=== PATIENT | male | born 1930 | race Caucasian/White ===

== ENCOUNTER 2018-05-10 10:30 | Inpatient (IN) | payer MEDICARE, BC ==
[2018-05-10 10:52] LABS: CHLORIDE,CL 103 mEq/L (98-106); SODIUM,NA 139 mEq/L (136-145)
[2018-05-10] MEDS ORDERED: Sodium Chloride 0.9% 10 ML Syringe FLUSH PRN (12:18)
[2018-05-10] MEDS ORDERED: Non-Formulary Medication 1 Each (Albuterol 2 PUFF) INH PRN (12:22)
[2018-05-10] MEDS ORDERED: Albuterol/Ipratropium 3.0-0.5 MG/3 ML Neb Soln NEB PRN (12:22)
[2018-05-10] MEDS ORDERED: Enoxaparin 30 MG/0.3 ML Syringe SUBCUT SCH (12:30)
[2018-05-10] MEDS: methylPREDNISolone Sodium Succinate 125 MG/2 ML SDV IVPUSH SCH (13:21)
[2018-05-10] MEDS: ALBUTEROL NEB SCH ×3 (13:22→20:21)
[2018-05-10] MEDS: IPRATROPIUM NEB SCH ×3 (13:22→20:21)
[2018-05-10] MEDS: Oseltamivir 75 MG Cap PO SCH ×2 (13:23→20:24)
[2018-05-10] MEDS: Acetaminophen 325 MG Tab PO PRN (13:28)
[2018-05-10] MEDS: WARFARIN 4 MG PO SCH (13:49)
[2018-05-10] MEDS: Budesonide 0.5 MG/2 ML Neb Susp INH SCH (20:20)
[2018-05-11] MEDS: ALBUTEROL NEB SCH ×4 (07:54→19:50)
[2018-05-11] MEDS: IPRATROPIUM NEB SCH ×4 (07:54→19:50)
[2018-05-11] MEDS: Furosemide 40 MG Tab PO SCH (07:55)
[2018-05-11] MEDS: Budesonide 0.5 MG/2 ML Neb Susp INH SCH ×2 (07:56→19:53)
[2018-05-11] MEDS: Lisinopril 5 MG Tab PO SCH (07:57)
[2018-05-11] MEDS: Oseltamivir 75 MG Cap PO SCH ×2 (07:58→19:53)
[2018-05-11] MEDS: Acetaminophen 325 MG Tab PO PRN (08:22)
[2018-05-11] MEDS: Codeine/Promethazine 10-6.25 MG/5 ML Syrup 5 ML UD Cup PO PRN ×2 (10:09→23:53)
--- NOTE | 2018-05-11 11:26 | PCM.PN ---
- General Info Date of Service: 05/11/18 Admission Dx/Problem (Free Text): Influenza A Functional Status: Reports: Pain Controlled, Tolerating Diet, Ambulating - Review of Systems General: Reports: Fever, Weakness, Fatigue, Malaise HEENT: Reports: Sinus Congestion, Rhinitis Pulmonary: Reports: Shortness of Breath, Cough, Wheezing Cardiovascular: Denies: Chest Pain, Edema, Lightheadedness Gastrointestinal: Reports: Other (patient states is sore in his abdomen and chest from coughing so frequently). Denies: Abdominal Pain, Nausea, Vomiting Genitourinary: Reports: No Symptoms Musculoskeletal: Reports: No Symptoms Skin: Reports: No Symptoms Neurological: Reports: No Symptoms - Patient Data Vitals - Most Recent: Last Vital Signs Temp 99.5 F 05/11/18 07:23 Pulse 85 05/11/18 07:23 Resp 20 05/11/18 07:23 BP 97/54 L 05/11/18 07:23 Pulse Ox 93 L 05/11/18 07:23 Weight - Most Recent: 163 lb 8 oz Lab Results Last 24 Hours: Laboratory Results - last 24 hr 05/10/18 05/10/18 05/11/18 Range/Units 17:28 20:40 07:00 PT 22.5 H (9.7-12.3) SEC INR 2.30 H (0.92-1.18) POC Glucose 289 H 373 H (75-105) mg/dl C-Reactive Protein (0.2-0.8) mg/dL 05/11/18 05/11/18 05/11/18 Range/Units 07:00 07:21 11:08 PT (9.7-12.3) SEC INR (0.92-1.18) POC Glucose 196 H 227 H (75-105) mg/dl C-Reactive Protein 8.1 H (0.2-0.8) mg/dL [place] Results Last 24 Hours: Microbiology 05/10/18 10:38 Influenza Type A Antigen Screen - Final Nasopharyngeal Swab Positive Influenza A Ag Influenza Type B Antigen Screen - Final NEGATIVE INFLUENZA B VIRUS AG Med Orders - Current: Current Medications Acetaminophen (Tylenol) 650 mg PO Q4H PRN PRN Reason: Pain (Mild 1-3)/fever Last Admin: 05/11/18 08:22 Dose: 650 mg Albuterol/Ipratropium (Duoneb 3.0-0.5 Mg/3 Ml) 3 ml NEB QID [facility] Last Admin: 05/11/18 07:54 Dose: 3 ml Albuterol/Ipratropium (Duoneb 3.0-0.5 Mg/3 Ml) 3 ml NEB QID PRN PRN Reason: Shortness of Breath Budesonide (Pulmicort) 0.5 mg INH BID [facility] Last Admin: 05/11/18 07:56 Dose: 0.5 mg Furosemide (Lasix) 40 mg PO DAILY [facility] Last Admin: 05/11/18 07:55 Dose: 40 mg Ibuprofen (Motrin 100 Mg/5 Ml Susp) 600 mg PO Q6H PRN PRN Reason: Fever Insulin Aspart (Novolog) 0 unit SUBCUT WITHMEALSANDBED [facility]; Protocol Last Admin: 05/11/18 07:54 Dose: 2 unit Lisinopril (Prinivil) 5 mg PO DAILY [facility] Last Admin: 05/11/18 07:57 Dose: Not Given Methylprednisolone Sodium Succinate (Solu-Medrol) 62.5 mg IVPUSH 1200 [facility] Last Admin: 05/10/18 13:21 Dose: 62.5 mg Ptom Warfarin 4 (Mg Tab) 2 mg PO SUTUTHSA [facility] Last Admin: 05/10/18 13:49 Dose: 2 mg Ptom Warfarin 4 (Mg Tab) 4 mg PO MOWEFR [facility] Oseltamivir Phosphate (Tamiflu) 75 mg PO BID [facility] Stop: 05/14/18 20:01 Last Admin: 05/11/18 07:58 Dose: 75 mg Promethazine HCl/Codeine (Phenergan With Codeine) 5 - 10 ml PO Q6H PRN PRN Reason: Cough Last Admin: 05/11/18 10:09 Dose: 10 ml Sodium Chloride (Saline Flush) 10 ml FLUSH ASDIRECTED PRN PRN Reason: Keep Vein Open Discontinued Medications Enoxaparin Sodium (Lovenox) 30 mg SUBCUT Q24H [facility] Last Admin: 05/10/18 13:44 Dose: Not Given Non-Formulary Medication (Albuterol) 2 puff INH Q4H PRN PRN Reason: Shortness of Breath - Exam General: Alert, Oriented HEENT: Mucous Membr. Moist/[place] Neck: Supple Lungs: Decreased Breath Sounds, Wheezing Cardiovascular: Regular Rate, Regular Rhythm GI/Abdominal Exam: Normal Bowel Sounds, Soft, Non-Tender Extremities: Normal Inspection, No Pedal Edema Skin: Warm, Dry Neurological: No New Focal Deficit - Problem List & Annotations (1) Influenza A SNOMED Code(s): 169670982 Code(s): J10.1 - FLU DUE TO OTH IDENT INFLUENZA VIRUS W OTH RESP MANIFEST Status: Acute Priority: High Current Visit: Yes - Problem List Review Problem List Initiated/Reviewed/Updated: Yes - My Orders Last 24 Hours: My Active Orders 05/11/18 09:12 Codeine/Promethazine [Phenergan with Codeine] 5 - 10 ml PO Q6H PRN 05/11/18 11:14 Ibuprofen [Motrin 100 MG/5 ML Susp] 600 mg PO Q6H PRN - Assessment Assessment:: Influenza A - Plan Plan:: Patient continues to "not feel well". States abdomen and chest are sore from coughing so much. Does get short of breath with activity. Wheezing at times. Cough nonproductive. He has continued to run a fever, been getting tylenol for this. Feels weak. Oxygen sats are maintained over 90% on room air. WBC stable at 6.1 on admission, CRP increased to 8.1 from 2.6. Will continue with nebulizer treatments, Tamiflu. Add prometh with codeine for cough. Add ibuprofen for fever control. Continue to follow.
[2018-05-11] MEDS: Ibuprofen 200 MG Tab PO PRN (11:42)
[2018-05-11] MEDS: WARFARIN 4 MG PO SCH (11:43)
[2018-05-11] MEDS: methylPREDNISolone Sodium Succinate 125 MG/2 ML SDV IVPUSH SCH (11:54)
[2018-05-11] MEDS ORDERED: Insulin Aspart 100 Units/ML 3 ML Pen SUBCUT ONE (21:08)
[2018-05-12] MEDS: Budesonide 0.5 MG/2 ML Neb Susp INH SCH ×2 (07:28→20:04)
[2018-05-12] MEDS: Furosemide 40 MG Tab PO SCH (07:30)
[2018-05-12] MEDS: Lisinopril 5 MG Tab PO SCH (07:30)
[2018-05-12] MEDS: ALBUTEROL NEB SCH ×4 (07:31→20:04)
[2018-05-12] MEDS: IPRATROPIUM NEB SCH ×4 (07:31→20:04)
[2018-05-12] MEDS: Acetaminophen 325 MG Tab PO PRN ×2 (07:36→23:18)
[2018-05-12 07:37] LABS: CHLORIDE,CL 100 mEq/L (98-106); SODIUM,NA 134 mEq/L (136-145)
[2018-05-12] MEDS: Oseltamivir 75 MG Cap PO SCH ×2 (07:37→20:04)
[2018-05-12] MEDS: Codeine/Promethazine 10-6.25 MG/5 ML Syrup 5 ML UD Cup PO PRN (12:06)
[2018-05-12] MEDS: WARFARIN 4 MG PO SCH (12:57)
[2018-05-12] MEDS: methylPREDNISolone Sodium Succinate 125 MG/2 ML SDV IVPUSH SCH (13:04)
[2018-05-12] MEDS: Ibuprofen 200 MG Tab PO PRN (20:48)
--- NOTE | 2018-05-12 20:49 | PCM.PN ---
- General Info Date of Service: 05/12/18 Admission Dx/Problem (Free Text): Influenza A Functional Status: Reports: Pain Controlled, Tolerating Diet, Ambulating - Review of Systems General: Reports: Fever, Weakness, Fatigue, Malaise HEENT: Reports: Sinus Congestion, Rhinitis. Denies: Ear Pain, Sore Throat Pulmonary: Reports: Shortness of Breath, Cough. Denies: Sputum Cardiovascular: Denies: Chest Pain, Edema, Lightheadedness Gastrointestinal: Denies: Abdominal Pain, Nausea, Vomiting Genitourinary: Reports: No Symptoms Musculoskeletal: Reports: Back Pain (chronic in nature) Skin: Reports: No Symptoms Neurological: Reports: Weakness - Patient Data Vitals - Most Recent: Last Vital Signs Temp 100.1 F 05/12/18 20:00 Pulse 120 H 05/12/18 20:00 Resp 20 05/12/18 20:00 BP 133/74 05/12/18 20:00 Pulse Ox 91 L 05/12/18 20:00 Weight - Most Recent: 163 lb 8 oz Lab Results Last 24 Hours: Laboratory Results - last 24 hr 05/11/18 05/12/18 05/12/18 Range/Units 23:41 07:00 07:00 WBC 4.4 L (5.0-10.0) 10^3/uL RBC 4.12 L (4.50-6.00) 10^6/uL Hgb 12.8 L (14.0-18.0) g/dL Hct 38.2 L (40.0-54.0) % MCV 92.7 (82.0-94.0) fL MCH 31.1 (27.0-32.0) pg MCHC 33.5 (33.0-38.0) g/dL RDW Coeff of Jose 12.7 (11.0-15.0) % Plt Count 126 L (150-400) 10^3/uL Add Manual Diff Yes Neutrophils % (Manual) 27 L (35-85) % Band Neutrophils % 58 H (0-5) % Lymphocytes % (Manual) 12 L (21-55) % Monocytes % (Manual) 3 (2-12) % Absolute Neutrophils 3.74 (1.80-7.00) 10^3/uL Lymphocytes # (Manual) 0.53 L (1.00-4.80) 10^3/uL Monocytes # (Manual) 0.13 (0.00-0.80) 10^3/uL PT 25.8 H (9.7-12.3) SEC INR 2.67 H (0.92-1.18) Sodium (136-145) mEq/L Potassium (3.5-5.0) mEq/L Chloride (98-106) mEq/L Carbon Dioxide (21-32) mmol/L BUN (7-18) mg/dL Creatinine (0.7-1.3) mg/dL Est Cr Clr Drug Dosing mL/min Estimated GFR (MDRD) (>=60) mL/min Glucose (75-99) mg/dL POC Glucose 439 H* (75-105) mg/dl Calcium (8.4-10.1) mg/dL C-Reactive Protein (0.2-0.8) mg/dL 05/12/18 05/12/18 05/12/18 Range/Units 07:00 11:33 16:58 WBC (5.0-10.0) 10^3/uL RBC (4.50-6.00) 10^6/uL Hgb (14.0-18.0) g/dL Hct (40.0-54.0) % MCV (82.0-94.0) fL MCH (27.0-32.0) pg MCHC (33.0-38.0) g/dL RDW Coeff of Jose (11.0-15.0) % Plt Count (150-400) 10^3/uL Add Manual Diff Neutrophils % (Manual) (35-85) % Band Neutrophils % (0-5) % Lymphocytes % (Manual) (21-55) % Monocytes % (Manual) (2-12) % Absolute Neutrophils (1.80-7.00) 10^3/uL Lymphocytes # (Manual) (1.00-4.80) 10^3/uL Monocytes # (Manual) (0.00-0.80) 10^3/uL PT (9.7-12.3) SEC INR (0.92-1.18) Sodium 134 L (136-145) mEq/L Potassium 4.7 (3.5-5.0) mEq/L Chloride 100 (98-106) mEq/L Carbon Dioxide 25 (21-32) mmol/L BUN 23 H (7-18) mg/dL Creatinine 1.0 (0.7-1.3) mg/dL Est Cr Clr Drug Dosing 46.08 mL/min Estimated GFR (MDRD) > 60 (>=60) mL/min Glucose 197 H (75-99) mg/dL POC Glucose 284 H 222 H (75-105) mg/dl Calcium 8.4 (8.4-10.1) mg/dL C-Reactive Protein 18.8 H (0.2-0.8) mg/dL Med Orders - Current: Current Medications Acetaminophen (Tylenol) 650 mg PO Q4H PRN PRN Reason: Pain (Mild 1-3)/fever Last Admin: 05/12/18 07:36 Dose: 650 mg Albuterol/Ipratropium (Duoneb 3.0-0.5 Mg/3 Ml) 3 ml NEB QID [facility] Last Admin: 05/12/18 20:04 Dose: 3 ml Albuterol/Ipratropium (Duoneb 3.0-0.5 Mg/3 Ml) 3 ml NEB QID PRN PRN Reason: Shortness of Breath Budesonide (Pulmicort) 0.5 mg INH BID [facility] Last Admin: 05/12/18 20:04 Dose: 0.5 mg Furosemide (Lasix) 40 mg PO DAILY [facility] Last Admin: 05/12/18 07:30 Dose: 40 mg Ibuprofen (Motrin) 600 mg PO Q6H PRN PRN Reason: Fever Last Admin: 05/11/18 11:42 Dose: 600 mg Insulin Aspart (Novolog) 0 unit SUBCUT WITHMEALSANDBED [facility]; Protocol Last Admin: 05/12/18 17:10 Dose: 4 unit Lisinopril (Prinivil) 5 mg PO DAILY [facility] Last Admin: 05/12/18 07:30 Dose: 5 mg Methylprednisolone Sodium Succinate (Solu-Medrol) 62.5 mg IVPUSH 1200 [facility] Last Admin: 05/12/18 13:04 Dose: 62.5 mg Ptom Warfarin 4 (Mg Tab) 2 mg PO SUTUTHSA [facility] Last Admin: 05/12/18 12:57 Dose: 2 mg Ptom Warfarin 4 (Mg Tab) 4 mg PO MOWEFR [facility] Last Admin: 05/11/18 11:43 Dose: 4 mg Oseltamivir Phosphate (Tamiflu) 75 mg PO BID [facility] Stop: 05/14/18 20:01 Last Admin: 05/12/18 20:04 Dose: 75 mg Promethazine HCl/Codeine (Phenergan With Codeine) 5 - 10 ml PO Q6H PRN PRN Reason: Cough Last Admin: 05/12/18 12:06 Dose: 5 ml Sodium Chloride (Saline Flush) 10 ml FLUSH ASDIRECTED PRN PRN Reason: Keep Vein Open Discontinued Medications Enoxaparin Sodium (Lovenox) 30 mg SUBCUT Q24H [facility] Last Admin: 05/10/18 13:44 Dose: Not Given Insulin Aspart (Novolog) 15 unit SUBCUT ONETIME ONE Stop: 05/11/18 21:09 Last Admin: 05/11/18 21:35 Dose: 15 units Non-Formulary Medication (Albuterol) 2 puff INH Q4H PRN PRN Reason: Shortness of Breath - Exam General: Alert, Oriented HEENT: Mucous Membr. Moist/[place] Neck: Supple Lungs: Decreased Breath Sounds, Rhonchi Cardiovascular: Regular Rate, Regular Rhythm GI/Abdominal Exam: Normal Bowel Sounds, Soft, Non-Tender Extremities: Normal Inspection, No Pedal Edema Skin: Warm, Dry Neurological: No New Focal Deficit - Problem List & Annotations (1) Influenza A SNOMED Code(s): 809059825 Code(s): J10.1 - FLU DUE TO OTH IDENT INFLUENZA VIRUS W OTH RESP MANIFEST Status: Acute Priority: High Current Visit: Yes - Problem List Review Problem List Initiated/Reviewed/Updated: Yes - Assessment Assessment:: Influenza A - Plan Plan:: Patient continues to "not feel well". States abdomen and chest are sore from coughing so much. Does get short of breath with activity. Wheezing at times. Cough nonproductive. He has continued to run a fever, been getting tylenol for this. Feels weak. Oxygen sats are maintained over 90% on room air. WBC stable at 6.1 on admission, CRP increased to 8.1 from 2.6. Will continue with nebulizer treatments, Tamiflu. Add prometh with codeine for cough. Add ibuprofen for fever control. Continue to follow. 05-12-2018 Patient admits to feeling slightly better than yesterday. Does continue to cough frequently when he lays down, states better when he is up in the chair. Cough has been nonproductive. Continues to have intermittent fevers. Lung sounds note rhonchi. Saturations do drop to low 90s at times with activity and cough. WBC down to 4.4 today. CRP increased to 18.8. Will continue with Tamiflu. Nebs and steroids. Possible discharge in the next day or 2.
[2018-05-13] MEDS: ALBUTEROL NEB SCH ×4 (07:48→20:55)
[2018-05-13] MEDS: Budesonide 0.5 MG/2 ML Neb Susp INH SCH ×2 (07:48→20:55)
[2018-05-13] MEDS: IPRATROPIUM NEB SCH ×4 (07:48→20:55)
[2018-05-13] MEDS: Oseltamivir 75 MG Cap PO SCH ×2 (07:49→20:55)
[2018-05-13] MEDS: Furosemide 40 MG Tab PO SCH (07:49)
[2018-05-13] MEDS: Lisinopril 5 MG Tab PO SCH (07:49)
[2018-05-13] MEDS: methylPREDNISolone Sodium Succinate 125 MG/2 ML SDV IVPUSH SCH (12:14)
[2018-05-13] MEDS: WARFARIN 4 MG PO SCH (12:15)
[2018-05-13] MEDS: Albuterol/Ipratropium 3.0-0.5 MG/3 ML Neb Soln NEB PRN ×5 (13:29→14:10)
[2018-05-13 13:49] LABS: BICARBONATE,ARTERIAL 21.2 mm/L (22.0-26.0); O2 DELIVERY DEVICE AEROSOL MASK; O2 SATURATION ARTERIAL 97 % (95-98); PCO2 ARTERIAL 45 mm/Hg0 (35-45); PO2 ARTERIAL 103 mm/Hg (80-100)
[2018-05-13] MEDS: Levalbuterol HCl 1.25 MG/3 ML Neb INH SCH ×4 (14:38→15:55)
[2018-05-13] MEDS ORDERED: LORazepam 2 MG/ML Syringe IVPUSH ONE (15:05)
[2018-05-13] MEDS ORDERED: LORazepam 2 MG/ML Syringe IVPUSH PRN (16:14)
[2018-05-13] MEDS ORDERED: fentaNYL 100 MCG/2 ML SDV IVPUSH PRN (16:16)
--- NOTE | 2018-05-13 20:48 | PCM.PN ---
- General Info Date of Service: 05/13/18 Admission Dx/Problem (Free Text): Influenza A Functional Status: Reports: Pain Controlled, Tolerating Diet, Ambulating - Review of Systems General: Reports: Weakness, Fatigue, Malaise HEENT: Reports: Rhinitis Pulmonary: Reports: Shortness of Breath, Cough, Wheezing Cardiovascular: Denies: Chest Pain, Edema, Lightheadedness Gastrointestinal: Denies: Abdominal Pain, Nausea, Vomiting Genitourinary: Reports: No Symptoms Musculoskeletal: Reports: Back Pain Skin: Reports: No Symptoms Neurological: Reports: Weakness - Patient Data Vitals - Most Recent: Last Vital Signs Temp 99 F 05/13/18 17:00 Pulse 125 H 05/13/18 17:00 Resp 30 H 05/13/18 17:00 BP 118/58 L 05/13/18 17:00 Pulse Ox 96 05/13/18 17:00 Weight - Most Recent: 163 lb 8 oz Lab Results Last 24 Hours: Laboratory Results - last 24 hr 05/12/18 05/13/18 05/13/18 Range/Units 20:34 07:18 07:43 WBC 3.5 L (5.0-10.0) 10^3/uL RBC 4.35 L (4.50-6.00) 10^6/uL Hgb 13.4 L (14.0-18.0) g/dL Hct 40.5 (40.0-54.0) % MCV 93.1 (82.0-94.0) fL MCH 30.8 (27.0-32.0) pg MCHC 33.1 (33.0-38.0) g/dL RDW Coeff of Jose 12.6 (11.0-15.0) % Plt Count 107 L (150-400) 10^3/uL Add Manual Diff Yes Neutrophils % (Manual) 36 (35-85) % Band Neutrophils % 45 H (0-5) % Lymphocytes % (Manual) 16 L (21-55) % Monocytes % (Manual) 1 L (2-12) % Metamyelocytes % 2 % Absolute Neutrophils 2.84 (1.80-7.00) 10^3/uL Lymphocytes # (Manual) 0.56 L (1.00-4.80) 10^3/uL Monocytes # (Manual) 0.04 (0.00-0.80) 10^3/uL Vacuolated Monocytes Occasional (NOT SEEN) Platelet Estimate Decreased L (ADEQUATE) ABG pH (7.35-7.45) ABG pCO2 (35-45) mm/Hg0 ABG pO2 (80-100) mm/Hg ABG HCO3 (22.0-26.0) mm/L ABG O2 Saturation (95-98) % ABG Base Excess (-2.0-3.0) O2 Delivery Device Sodium (136-145) mEq/L Potassium (3.5-5.0) mEq/L Chloride (98-106) mEq/L Carbon Dioxide (21-32) mmol/L BUN (7-18) mg/dL Creatinine (0.7-1.3) mg/dL Est Cr Clr Drug Dosing mL/min Estimated GFR (MDRD) (>=60) mL/min Glucose (75-99) mg/dL POC Glucose 316 H 258 H (75-105) mg/dl Calcium (8.4-10.1) mg/dL C-Reactive Protein (0.2-0.8) mg/dL 05/13/18 05/13/18 05/13/18 Range/Units 07:43 11:48 13:23 WBC (5.0-10.0) 10^3/uL RBC (4.50-6.00) 10^6/uL Hgb (14.0-18.0) g/dL Hct (40.0-54.0) % MCV (82.0-94.0) fL MCH (27.0-32.0) pg MCHC (33.0-38.0) g/dL RDW Coeff of Jose (11.0-15.0) % Plt Count (150-400) 10^3/uL Add Manual Diff Neutrophils % (Manual) (35-85) % Band Neutrophils % (0-5) % Lymphocytes % (Manual) (21-55) % Monocytes % (Manual) (2-12) % Metamyelocytes % % Absolute Neutrophils (1.80-7.00) 10^3/uL Lymphocytes # (Manual) (1.00-4.80) 10^3/uL Monocytes # (Manual) (0.00-0.80) 10^3/uL Vacuolated Monocytes (NOT SEEN) Platelet Estimate (ADEQUATE) ABG pH 7.28 L (7.35-7.45) ABG pCO2 45 (35-45) mm/Hg0 ABG pO2 103 H (80-100) mm/Hg ABG HCO3 21.2 L (22.0-26.0) mm/L ABG O2 Saturation 97 (95-98) % ABG Base Excess -6.0 L (-2.0-3.0) O2 Delivery Device Aerosol mask Sodium 132 L (136-145) mEq/L Potassium 5.3 H (3.5-5.0) mEq/L Chloride 99 (98-106) mEq/L Carbon Dioxide 24 (21-32) mmol/L BUN 31 H (7-18) mg/dL Creatinine 1.5 H (0.7-1.3) mg/dL Est Cr Clr Drug Dosing 30.72 mL/min Estimated GFR (MDRD) 44 L (>=60) mL/min Glucose 251 H D (75-99) mg/dL POC Glucose 268 H (75-105) mg/dl Calcium 9.4 (8.4-10.1) mg/dL C-Reactive Protein 37.0 H (0.2-0.8) mg/dL 05/13/18 05/13/18 Range/Units 17:29 20:03 WBC (5.0-10.0) 10^3/uL RBC (4.50-6.00) 10^6/uL Hgb (14.0-18.0) g/dL Hct (40.0-54.0) % MCV (82.0-94.0) fL MCH (27.0-32.0) pg MCHC (33.0-38.0) g/dL RDW Coeff of Jose (11.0-15.0) % Plt Count (150-400) 10^3/uL Add Manual Diff Neutrophils % (Manual) (35-85) % Band Neutrophils % (0-5) % Lymphocytes % (Manual) (21-55) % Monocytes % (Manual) (2-12) % Metamyelocytes % % Absolute Neutrophils (1.80-7.00) 10^3/uL Lymphocytes # (Manual) (1.00-4.80) 10^3/uL Monocytes # (Manual) (0.00-0.80) 10^3/uL Vacuolated Monocytes (NOT SEEN) Platelet Estimate (ADEQUATE) ABG pH (7.35-7.45) ABG pCO2 (35-45) mm/Hg0 ABG pO2 (80-100) mm/Hg ABG HCO3 (22.0-26.0) mm/L ABG O2 Saturation (95-98) % ABG Base Excess (-2.0-3.0) O2 Delivery Device Sodium (136-145) mEq/L Potassium (3.5-5.0) mEq/L Chloride (98-106) mEq/L Carbon Dioxide (21-32) mmol/L BUN (7-18) mg/dL Creatinine (0.7-1.3) mg/dL Est Cr Clr Drug Dosing mL/min Estimated GFR (MDRD) (>=60) mL/min Glucose (75-99) mg/dL POC Glucose 284 H 300 H (75-105) mg/dl Calcium (8.4-10.1) mg/dL C-Reactive Protein (0.2-0.8) mg/dL Med Orders - Current: Current Medications Acetaminophen (Tylenol) 650 mg PO Q4H PRN PRN Reason: Pain (Mild 1-3)/fever Last Admin: 05/12/18 23:18 Dose: 650 mg Albuterol/Ipratropium (Duoneb 3.0-0.5 Mg/3 Ml) 3 ml NEB QID [facility] Last Admin: 05/13/18 16:07 Dose: Not Given Albuterol/Ipratropium (Duoneb 3.0-0.5 Mg/3 Ml) 3 ml NEB QID PRN PRN Reason: Shortness of Breath Budesonide (Pulmicort) 0.5 mg INH BID [facility] Last Admin: 05/13/18 07:48 Dose: 0.5 mg Fentanyl (Sublimaze) 25 mcg IVPUSH Q2H PRN PRN Reason: Pain Furosemide (Lasix) 40 mg PO DAILY [facility] Last Admin: 05/13/18 07:49 Dose: 40 mg Ibuprofen (Motrin) 600 mg PO Q6H PRN PRN Reason: Fever Last Admin: 05/12/18 20:48 Dose: 600 mg Insulin Aspart (Novolog) 0 unit SUBCUT WITHMEALSANDBED [facility]; Protocol Last Admin: 05/13/18 17:40 Dose: Not Given Levalbuterol HCl (Xopenex) 1.25 mg INH .CONTINUOUS [facility] Last Admin: 05/13/18 15:55 Dose: 1.25 mg Lisinopril (Prinivil) 5 mg PO DAILY [facility] Last Admin: 05/13/18 07:49 Dose: Not Given Lorazepam (Ativan) 1 mg IVPUSH Q6H PRN PRN Reason: Anxiety Methylprednisolone Sodium Succinate (Solu-Medrol) 62.5 mg IVPUSH 1200 [facility] Last Admin: 05/13/18 12:14 Dose: 62.5 mg Oseltamivir Phosphate (Tamiflu) 75 mg PO BID [facility] Stop: 05/14/18 20:01 Last Admin: 05/13/18 07:49 Dose: 75 mg Promethazine HCl/Codeine (Phenergan With Codeine) 5 - 10 ml PO Q6H PRN PRN Reason: Cough Last Admin: 05/12/18 12:06 Dose: 5 ml Sodium Chloride (Saline Flush) 10 ml FLUSH ASDIRECTED PRN PRN Reason: Keep Vein Open Warfarin Sodium (Coumadin) 2 mg PO [facility] Warfarin Sodium (Coumadin) 4 mg PO [id number] [facility] Discontinued Medications Albuterol/Ipratropium (Duoneb 3.0-0.5 Mg/3 Ml) 3 ml NEB CONTINUOUS PRN PRN Reason: Dyspnea Last Admin: 05/13/18 14:10 Dose: 3 ml Enoxaparin Sodium (Lovenox) 30 mg SUBCUT Q24H [facility] Last Admin: 05/10/18 13:44 Dose: Not Given Insulin Aspart (Novolog) 15 unit SUBCUT ONETIME ONE Stop: 05/11/18 21:09 Last Admin: 05/11/18 21:35 Dose: 15 units Lorazepam (Ativan) 0.5 mg IVPUSH ONETIME ONE Stop: 05/13/18 15:06 Last Admin: 05/13/18 15:16 Dose: 0.5 mg Non-Formulary Medication (Albuterol) 2 puff INH Q4H PRN PRN Reason: Shortness of Breath Ptom War[facility]in 4 (Mg Tab) [facility] Last Admin: 05/12/18 12:57 Dose: 2 mg Ptom Warfarin 4 (Mg Tab) 4 mg PO MOWEFR [facility] Last Admin: 05/13/18 12:15 Dose: 4 mg Warfarin Sodium (Coumadin) 4 mg PO MOWEFR [facility] - Exam Quality Assessment: Supplemental Oxygen General: Alert, Oriented HEENT: Mucous Membr. Moist/[place] Neck: Supple Lungs: Rhonchi, Wheezing Cardiovascular: Regular Rate, Regular Rhythm, Tachycardia GI/Abdominal Exam: Normal Bowel Sounds, Soft, Non-Tender Extremities: Normal Inspection, No Pedal Edema Skin: Warm, Dry Neurological: No New Focal Deficit - Problem List & Annotations (1) Influenza A SNOMED Code(s): 517839318 Code(s): J10.1 - FLU DUE TO OTH IDENT INFLUENZA VIRUS W OTH RESP MANIFEST Status: Acute Priority: High Current Visit: Yes (2) Palliative care patient SNOMED Code(s): 683878006 Code(s): Z51.5 - ENCOUNTER FOR PALLIATIVE CARE Status: Acute Priority: High Current Visit: Yes - Problem List Review Problem List Initiated/Reviewed/Updated: Yes - My Orders Last 24 Hours: My Active Orders 05/13/18 16:14 LORazepam [Ativan] 1 mg IVPUSH Q6H PRN 05/13/18 16:16 fentaNYL [Sublimaze] 25 mcg IVPUSH Q2H PRN - Assessment Assessment:: Influenza A Palliative Care Patient - Plan Plan:: Patient continues to "not feel well". States abdomen and chest are sore from coughing so much. Does get short of breath with activity. Wheezing at times. Cough nonproductive. He has continued to run a fever, been getting tylenol for this. Feels weak. Oxygen sats are maintained over 90% on room air. WBC stable at 6.1 on admission, CRP increased to 8.1 from 2.6. Will continue with nebulizer treatments, Tamiflu. Add prometh with codeine for cough. Add ibuprofen for fever control. Continue to follow. 05-12-2018 Patient admits to feeling slightly better than yesterday. Does continue to cough frequently when he lays down, states better when he is up in the chair. Cough has been nonproductive. Continues to have intermittent fevers. Lung sounds note rhonchi. Saturations do drop to low 90s at times with activity and cough. WBC down to 4.4 today. CRP increased to 18.8. Will continue with Tamiflu. Nebs and steroids. Possible discharge in the next day or 2. 05-13-2018 Patient notably more short of breath this am, now on oxygen. Sats did drop in to the upper 80s on room air so oxygen was initiated at 2 liters. He admits to ongoing cough, still nonproductive. Is wheezing with scattered rhonchi this am. Feels weak. WBC remains low at 3.5. CRP has increased to 37. Creatinine 1.5. Sodium 132, potassium 5.3. Will continue with Tamiflu, nebs and steroids. Switched to acute care last evening due to change in status. Inappropriate for discharge.
--- NOTE | 2018-05-13 22:16 | PCM.SN ---
- Free Text/Narrative Note: Called to room to see patient due to change in status. Dr. Maurer also alerted and in to see patient. Patient has had increased work of breathing, more short of breath. Requiring 10 liters of oxygen to keep his sats greater than 90%. Dr. Maurer had ordered 0.5 mg of Ativan and continues Xopenex nebulizer treatments. Did seem to help his ease of breathing. Family in at bedside and aware of status of patient and increased oxygen demands. . Patient does have a living will, had signed a Code Level 2. Is aware of that infectious process is detrimental to his lungs and patient could decline to the point of . Patient does not want intubation. Family does not want patient transferred. Palliative care status. Continue with Ativan, Fentanyl, Nebs and Tamiflu and monitor closely.
[2018-05-14] MEDS: Ibuprofen 200 MG Tab PO PRN (03:33)
[2018-05-14] MEDS: Furosemide 40 MG Tab PO SCH ×2 (07:53→08:35)
[2018-05-14] MEDS: ALBUTEROL NEB SCH ×4 (07:53→20:47)
[2018-05-14] MEDS: IPRATROPIUM NEB SCH ×4 (07:53→20:47)
[2018-05-14] MEDS: Oseltamivir 75 MG Cap PO SCH ×2 (07:53→08:35)
[2018-05-14] MEDS: Budesonide 0.5 MG/2 ML Neb Susp INH SCH ×2 (07:54→20:47)
[2018-05-14] MEDS: Lisinopril 5 MG Tab PO SCH (07:54)
[2018-05-14 12:08] VITALS: BP 104/54
[2018-05-14] MEDS: methylPREDNISolone Sodium Succinate 125 MG/2 ML SDV IVPUSH SCH (12:10)
[2018-05-14] MEDS ORDERED: Atropine 1% Ophth Soln 5 ML BOTTLE SL PRN ×2 (13:04→13:45)
[2018-05-14] MEDS ORDERED: LORazepam 2 MG/ML Syringe IVPUSH PRN (13:04)
--- NOTE | 2018-05-14 13:08 | PCM.PN ---
- General Info Date of Service: 05/14/18 Admission Dx/Problem (Free Text): Influenza A Subjective Update: Cuate is an 88 year old male who was admitted to the hospital 05/10/2018 with Influenza A. He has progressively declined since time of admission. Breathing has become much more labored, lung sounds have worsened, and his O2 needs have increased greatly. Intubation and transfer to higher level of care were discussed at length with family and patient yesterday, to which they declined. Throughout the night, patient continues to have very labored breathing and his oxygen needs have increased. He is currently maintaining O2 sat of 91% on 10 L O2 via NRB. He remains very tachycardic with pulse ranging 120's-140's. BP is stable 100's/50-60's. He has been afebrile the past 24 hours. He does however, deny any pain or discomfort. Blood work continues to reveal decline. WBC dropped from 6.1 on admit to critically low today at 1.6. CRP has increased significantly, from 2.6 on admit to 37 today. Sodium continues to decrease from 139 on admit to 132 today. Creatinine also declining from 1.0 on admit to 1.5 today. Blood sugars have been 200-300's with SSI. This morning patient refused blood sugar check. He reports "that's enough." Family and patient wish to switch to comfort measures. I did discuss with patient and family repeat CXR today to rule out aspiration pneumonia, to which they all declined. Patient much more lethargic today. He attempts to pull oxygen mask off at times. Patient reports he is ready to let go. Patient did have dose of lorazepam this this morning and appears to be much more comfortable. Family wish to continue this medication to allow him to rest peacefully. I discussed with family, stopping all blood draws and oral medications, to which they prefer. Did discuss that if patient wishes he can eat /drink, but there is high risk of aspiration in his current condition to which they understand. Functional Status: Reports: Pain Controlled, Urinating, New Symptoms (worsening breathing). Denies: Tolerating Diet, Ambulating - Review of Systems General: Reports: Weakness, Fatigue. Denies: Fever HEENT: Reports: No Symptoms Pulmonary: Reports: Shortness of Breath, Cough (diminished cough reflex). Denies: Hemoptysis Cardiovascular: Reports: Dyspnea on Exertion, Orthopnea. Denies: Chest Pain, Edema Gastrointestinal: Reports: Decreased Appetite. Denies: Abdominal Pain, Diarrhea , Nausea, Vomiting Genitourinary: Reports: No Symptoms. Denies: Dysuria, Frequency, Burning Musculoskeletal: Reports: No Symptoms Skin: Reports: No Symptoms Neurological: Reports: Weakness Psychiatric: Reports: No Symptoms - Patient Data Vitals - Most Recent: Last Vital Signs Temp 98.9 F 05/14/18 12:00 Pulse 140 H 05/14/18 12:00 Resp 36 H 05/14/18 12:00 BP 104/54 L 05/14/18 12:00 Pulse Ox 91 L 05/14/18 12:00 Weight - Most Recent: 163 lb 8 oz Lab Results Last 24 Hours: Laboratory Results - last 24 hr 05/13/18 05/13/18 05/13/18 Range/Units 13:23 17:29 20:03 WBC (5.0-10.0) 10^3/uL RBC (4.50-6.00) 10^6/uL Hgb (14.0-18.0) g/dL Hct (40.0-54.0) % MCV (82.0-94.0) fL MCH (27.0-32.0) pg MCHC (33.0-38.0) g/dL RDW Coeff of Jose (11.0-15.0) % Plt Count (150-400) 10^3/uL Add Manual Diff Band Neutrophils % (0-5) % Lymphocytes % (Manual) (21-55) % Monocytes % (Manual) (2-12) % Metamyelocytes % % Absolute Neutrophils (1.80-7.00) 10^3/uL Lymphocytes # (Manual) (1.00-4.80) 10^3/uL Monocytes # (Manual) (0.00-0.80) 10^3/uL Nucleated RBCs (0-5) /100WBC Vacuolated Monocytes (NOT SEEN) Platelet Estimate (ADEQUATE) PT (9.7-12.3) SEC INR (0.92-1.18) ABG pH 7.28 L (7.35-7.45) ABG pCO2 45 (35-45) mm/Hg0 ABG pO2 103 H (80-100) mm/Hg ABG HCO3 21.2 L (22.0-26.0) mm/L ABG O2 Saturation 97 (95-98) % ABG Base Excess -6.0 L (-2.0-3.0) O2 Delivery Device Aerosol mask Sodium (136-145) mEq/L Potassium (3.5-5.0) mEq/L Chloride (98-106) mEq/L Carbon Dioxide (21-32) mmol/L BUN (7-18) mg/dL Creatinine (0.7-1.3) mg/dL Est Cr Clr Drug Dosing mL/min Estimated GFR (MDRD) (>=60) mL/min Glucose (75-99) mg/dL POC Glucose 284 H 300 H (75-105) mg/dl Calcium (8.4-10.1) mg/dL C-Reactive Protein (0.2-0.8) mg/dL 05/14/18 05/14/18 05/14/18 Range/Units 06:46 08:00 08:00 WBC 1.6 L* (5.0-10.0) 10^3/uL RBC 4.52 (4.50-6.00) 10^6/uL Hgb 13.8 L (14.0-18.0) g/dL Hct 42.5 (40.0-54.0) % MCV 94.0 (82.0-94.0) fL MCH 30.5 (27.0-32.0) pg MCHC 32.5 L (33.0-38.0) g/dL RDW Coeff of Jose 12.8 (11.0-15.0) % Plt Count 119 L (150-400) 10^3/uL Add Manual Diff Yes Band Neutrophils % 12 H (0-5) % Lymphocytes % (Manual) 20 L (21-55) % Monocytes % (Manual) 4 (2-12) % Metamyelocytes % 64 % Absolute Neutrophils 0.19 L (1.80-7.00) 10^3/uL Lymphocytes # (Manual) 0.32 L (1.00-4.80) 10^3/uL Monocytes # (Manual) 0.06 (0.00-0.80) 10^3/uL Nucleated RBCs 1 (0-5) /100WBC Vacuolated Monocytes Occasional (NOT SEEN) Platelet Estimate Decreased L (ADEQUATE) PT (9.7-12.3) SEC INR (0.92-1.18) ABG pH (7.35-7.45) ABG pCO2 (35-45) mm/Hg0 ABG pO2 (80-100) mm/Hg ABG HCO3 (22.0-26.0) mm/L ABG O2 Saturation (95-98) % ABG Base Excess (-2.0-3.0) O2 Delivery Device Sodium 134 L (136-145) mEq/L Potassium 5.5 H (3.5-5.0) mEq/L Chloride 100 (98-106) mEq/L Carbon Dioxide 23 (21-32) mmol/L BUN 45 H (7-18) mg/dL Creatinine 1.5 H (0.7-1.3) mg/dL Est Cr Clr Drug Dosing 30.72 mL/min Estimated GFR (MDRD) 44 L (>=60) mL/min Glucose 190 H (75-99) mg/dL POC Glucose 189 H (75-105) mg/dl Calcium 10.1 (8.4-10.1) mg/dL C-Reactive Protein 49.4 H (0.2-0.8) mg/dL 05/14/18 Range/Units 08:00 WBC (5.0-10.0) 10^3/uL RBC (4.50-6.00) 10^6/uL Hgb (14.0-18.0) g/dL Hct (40.0-54.0) % MCV (82.0-94.0) fL MCH (27.0-32.0) pg MCHC (33.0-38.0) g/dL RDW Coeff of Jose (11.0-15.0) % Plt Count (150-400) 10^3/uL Add Manual Diff Band Neutrophils % (0-5) % Lymphocytes % (Manual) (21-55) % Monocytes % (Manual) (2-12) % Metamyelocytes % % Absolute Neutrophils (1.80-7.00) 10^3/uL Lymphocytes # (Manual) (1.00-4.80) 10^3/uL Monocytes # (Manual) (0.00-0.80) 10^3/uL Nucleated RBCs (0-5) /100WBC Vacuolated Monocytes (NOT SEEN) Platelet Estimate (ADEQUATE) PT 26.1 H (9.7-12.3) SEC INR 2.70 H (0.92-1.18) ABG pH (7.35-7.45) ABG pCO2 (35-45) mm/Hg0 ABG pO2 (80-100) mm/Hg ABG HCO3 (22.0-26.0) mm/L ABG O2 Saturation (95-98) % ABG Base Excess (-2.0-3.0) O2 Delivery Device Sodium (136-145) mEq/L Potassium (3.5-5.0) mEq/L Chloride (98-106) mEq/L Carbon Dioxide (21-32) mmol/L BUN (7-18) mg/dL Creatinine (0.7-1.3) mg/dL Est Cr Clr Drug Dosing mL/min Estimated GFR (MDRD) (>=60) mL/min Glucose (75-99) mg/dL POC Glucose (75-105) mg/dl Calcium (8.4-10.1) mg/dL C-Reactive Protein (0.2-0.8) mg/dL Med Orders - Current: Current Medications Acetaminophen (Tylenol) 650 mg PO Q4H PRN PRN Reason: Pain (Mild 1-3)/fever Last Admin: 05/12/18 23:18 Dose: 650 mg Albuterol/Ipratropium (Duoneb 3.0-0.5 Mg/3 Ml) 3 ml NEB QID [facility] Last Admin: 05/14/18 12:12 Dose: 3 ml Albuterol/Ipratropium (Duoneb 3.0-0.5 Mg/3 Ml) 3 ml NEB QID PRN PRN Reason: Shortness of Breath Last Admin: 05/14/18 03:28 Dose: 3 ml Atropine Sulfate (Atropine 1% Ophth Soln) 0.5 ml SL Q2H PRN PRN Reason: Other Budesonide (Pulmicort) 0.5 mg INH BID [facility] Last Admin: 05/14/18 07:54 Dose: 0.5 mg Fentanyl (Sublimaze) 25 mcg IVPUSH Q2H PRN PRN Reason: Pain Ibuprofen (Motrin) 600 mg PO Q6H PRN PRN Reason: Fever Last Admin: 05/14/18 03:33 Dose: 600 mg Levalbuterol HCl (Xopenex) 1.25 mg INH .CONTINUOUS [facility] Last Admin: 05/13/18 15:55 Dose: 1.25 mg Lorazepam (Ativan) 1 mg IVPUSH Q2H PRN PRN Reason: Anxiety Promethazine HCl/Codeine (Phenergan With Codeine) 5 - 10 ml PO Q6H PRN PRN Reason: Cough Last Admin: 05/12/18 12:06 Dose: 5 ml Sodium Chloride (Saline Flush) 10 ml FLUSH ASDIRECTED PRN PRN Reason: Keep Vein Open Discontinued Medications Albuterol/Ipratropium (Duoneb 3.0-0.5 Mg/3 Ml) 3 ml NEB CONTINUOUS PRN PRN Reason: Dyspnea Last Admin: 05/13/18 14:10 Dose: 3 ml Enoxaparin Sodium (Lovenox) 30 mg SUBCUT Q24H [facility] Last Admin: 05/10/18 13:44 Dose: Not Given Furosemide (Lasix) 40 mg PO DAILY [facility] Last Admin: 05/14/18 08:35 Dose: Not Given Insulin Aspart (Novolog) 0 unit SUBCUT WITHMEALSANDBED [facility]; Protocol Last Admin: 05/14/18 13:01 Dose: Not Given Insulin Aspart (Novolog) 15 unit SUBCUT ONETIME ONE Stop: 05/11/18 21:09 Last Admin: 05/11/18 21:35 Dose: 15 units Lisinopril (Prinivil) 5 mg PO DAILY [facility] Last Admin: 05/14/18 07:54 Dose: Not Given Lorazepam (Ativan) 0.5 mg IVPUSH ONETIME ONE Stop: 05/13/18 15:06 Last Admin: 05/13/18 15:16 Dose: 0.5 mg Lorazepam (Ativan) 1 mg IVPUSH Q6H PRN PRN Reason: Anxiety Last Admin: 05/14/18 08:06 Dose: 1 mg Methylprednisolone Sodium Succinate (Solu-Medrol) 62.5 mg IVPUSH 1200 [facility] Last Admin: 05/14/18 12:10 Dose: 62.5 mg Non-Formulary Medication (Albuterol) 2 puff INH Q4H PRN PRN Reason: Shortness of Breath Ptom Warfarin 4 (Mg Tab) 2 mg PO SUTUTHSA [facility] Last Admin: 05/12/18 12:57 Dose: 2 mg Ptom Warfarin 4 (Mg Tab) [facility] Last Admin: 05/13/18 12:15 Dose: 4 mg Oseltamivir Phosphate (Tamiflu) 75 mg PO BID [facility] Stop: 05/14/18 20:01 Last Admin: 05/14/18 08:35 Dose: Not Given Warfarin Sodium (Coumadin) 2 mg PO SUTUTHSA [facility] Last Admin: 05/14/18 12:14 Dose: Not Given Warfarin Sodium (Coumadin) 4 mg PO MOWEFR [facility] Warfarin Sodium (Coumadin) 4 mg PO MoWeFr@1200 [facility] - Exam Quality Assessment: Supplemental Oxygen General: Lethargic HEENT: Pupils Equal, Pupils Reactive, EOMI, Mucous Membr. Moist/[place] Neck: Supple Lungs: Decreased Breath Sounds, Rhonchi, Other (labored, abdominal breathing) Cardiovascular: Irregular Rhythm, Tachycardia GI/Abdominal Exam: Normal Bowel Sounds, Soft, Non-Tender, No Organomegaly, No Distention, No Abnormal Bruit, No Mass, Pelvis Stable Extremities: Normal Inspection, Normal Range of Motion, Non-Tender, No Pedal Edema, Normal Capillary Refill Peripheral Pulses: 2+: Dorsalis Pedis (L), Dorsalis Pedis (R) Skin: Warm, Intact, Other (flushed) Neurological: No New Focal Deficit - Problem List & Annotations (1) Influenza A SNOMED Code(s): 624259827 Code(s): J10.1 - FLU DUE TO OTH IDENT INFLUENZA VIRUS W OTH RESP MANIFEST Status: Acute Priority: High Current Visit: Yes (2) Need for comfort care SNOMED Code(s): 133493112, 807287754 Code(s): ZQK6779 - Status: Acute Current Visit: Yes (3) Palliative care patient SNOMED Code(s): 246251361 Code(s): Z51.5 - ENCOUNTER FOR PALLIATIVE CARE Status: Acute Priority: High Current Visit: Yes - Problem List Review Problem List Initiated/Reviewed/Updated: Yes - My Orders Last 24 Hours: My Active Orders 05/14/18 13:00 Comfort Measures [OM.PC] Routine 05/14/18 13:04 Atropine 1% [Atropine 1% Ophth Soln] 0.5 ml SL Q2H PRN LORazepam [Ativan] 1 mg IVPUSH Q2H PRN - Assessment Assessment:: Influenza A Palliative Care Patient Comfort Care Measures - Plan Plan:: We will switch patient to comfort care measures only per patient and family wishes. Patient and family decline chest xray to evaluate for aspiration pneumonia. Declines further treatment/workup. Will continue nebulizers. Stop all oral medications, lab draws, glucose checks. Continue lorazepam and fentanyl as needed for comfort. Oral cares and turn every 2 hours. Inappropriate for discharge.
--- NOTE | 2018-05-15 12:13 | PCM.DCSUM1 ---
Discharge Summary - Hospital Course Free Text/Narrative:: Cuate was admitted to the hospital 05/10/2018 with Influenza A. Originally presented to the clinic with c/o cough, fever, and weakness. Labs and chest xray were completed at time of admit, significant for Influenza A. Chest xray was negative for consolidations or effusions. At time of admit WBC was normal at 6.1. CRP was slightly elevated at 2.6. Labs were otherwise stable. Throughout hospitalization, patient's respiratory status declined despite treatment with O2, nebs, Tamiflu, and steroids. Discussion was had with patient and family offering intubation and transfer to higher level of care, to which they declined. Patient had multiple comorbidities. Patient wished to be kept comfortable. Labs declined throughout hospitalization. WBC decreased from 6.1 to 1.6. CRP increased from 2.6 to 49.4. Breathing was very labored and patient became more lethargic. Repeat CXR to evaluate for aspiration was discussed with patient and family. They both declined and wanted to switch to strictly comfort cares. On 05/14/2017, patient was switched to comfort cares. Nebulizers and O2 were continued. Patient was given lorazepam, which seemed to decrease restlessness. Family was present throughout day and patient peacefully passed at 1933 on 05/14/2018. - Discharge Data Discharge Date: 05/14/18 Discharge Disposition: 20 Condition: - Discharge Diagnosis/Problem(s) (1) Influenza A SNOMED Code(s): 467213943 ICD Code: J10.1 - FLU DUE TO OTH IDENT INFLUENZA VIRUS W OTH RESP MANIFEST Status: Acute Priority: High (2) Need for comfort care SNOMED Code(s): 127408543, [id number] ICD Code: [id number] - Status: Acute (3) Palliative care patient SNOMED Code(s): 513642536 ICD Code: Z51.5 - ENCOUNTER FOR PALLIATIVE CARE Status: Acute Priority: High - Discharge Plan *PRESCRIPTION DRUG MONITORING PROGRAM REVIEWED*: Not Applicable *COPY OF PRESCRIPTION DRUG MONITORING REPORT IN PATIENT ALEKSANDR: Not Applicable Home Medications: Home Meds Acetaminophen [Tylenol] 650 mg PO Q4H PRN 06/07/13 [History] Acetaminophen/Caffeine [Excedrin Tension Headache] 1 tab PO BID PRN 06/07/13 [ History] Albuterol [Ventolin HFA] 2 puff INH Q4H PRN 06/07/13 [History] Budesonide [Pulmicort Flexhaler] 2 puff INH BID 06/07/13 [History] Warfarin [Coumadin] 2 mg PO SUTUTHSA 02/22/14 [History] Warfarin [Coumadin] 4 mg PO MOWEFR 02/22/14 [History] Albuterol/Ipratropium [DuoNeb 3.0-0.5 MG/3 ML] 3 ml NEB QID PRN 02/23/14 [ History] Furosemide 40 mg PO DAILY #30 tablet 10/18/15 [Rx] Lisinopril [Prinivil] 5 mg PO DAILY #30 tablet 10/18/15 [Rx] Cholecalciferol (Vitamin D3) [Vitamin D3] 1,000 unit PO DAILY 05/10/18 [History] Oseltamivir Phosphate 75 mg PO BID 05/10/18 [History] metFORMIN HCl [Metformin HCl ER] 500 mg PO DAILY 05/10/18 [History] predniSONE [Prednisone] 5 mg PO Q48H 05/10/18 [History] - Discharge Summary/Plan Comment DC Time >30 min.: No - General Info Date of Service: 05/14/18 Admission Dx/Problem (Free Text: Influenza A Functional Status: Reports: Pain Controlled - Patient Data Vitals - Most Recent: Last Vital Signs Temp 98.9 F 05/14/18 12:00 Pulse 140 H 05/14/18 12:00 Resp 36 H 05/14/18 12:00 BP 104/54 L 05/14/18 12:00 Pulse Ox 91 L 05/14/18 12:00 Weight - Most Recent: 163 lb 8 oz Med Orders - Current: Current Medications Discontinued Medications Acetaminophen (Tylenol) 650 mg PO Q4H PRN PRN Reason: Pain (Mild 1-3)/fever Last Admin: 05/12/18 23:18 Dose: 650 mg Albuterol/Ipratropium (Duoneb 3.0-0.5 Mg/3 Ml) 3 ml NEB QID [facility] Last Admin: 05/14/18 20:47 Dose: Not Given Albuterol/Ipratropium (Duoneb 3.0-0.5 Mg/3 Ml) 3 ml NEB QID PRN PRN Reason: Shortness of Breath Last Admin: 05/14/18 03:28 Dose: 3 ml Albuterol/Ipratropium (Duoneb 3.0-0.5 Mg/3 Ml) 3 ml NEB CONTINUOUS PRN PRN Reason: Dyspnea Last Admin: 05/13/18 14:10 Dose: 3 ml Atropine Sulfate (Atropine 1% Ophth Soln) 0.5 ml SL Q2H PRN PRN Reason: Other Last Admin: 05/14/18 13:25 Dose: 0.5 ml Atropine Sulfate (Atropine 1% Ophth Soln) 0 ml SL Q2H PRN PRN Reason: Other Budesonide (Pulmicort) 0.5 mg INH BID [facility] Last Admin: 05/14/18 20:47 Dose: Not Given Enoxaparin Sodium (Lovenox) 30 mg SUBCUT Q24H [facility] Last Admin: 05/10/18 13:44 Dose: Not Given Fentanyl (Sublimaze) 25 mcg IVPUSH Q2H PRN PRN Reason: Pain Furosemide (Lasix) 40 mg PO DAILY [facility] Last Admin: 05/14/18 08:35 Dose: Not Given Ibuprofen (Motrin) 600 mg PO Q6H PRN PRN Reason: Fever Last Admin: 05/14/18 03:33 Dose: 600 mg Insulin Aspart (Novolog) 0 unit SUBCUT WITHMEALSANDBED [facility]; Protocol Last Admin: 05/14/18 13:01 Dose: Not Given Insulin Aspart (Novolog) 15 unit SUBCUT ONETIME ONE Stop: 05/11/18 21:09 Last Admin: 05/11/18 21:35 Dose: 15 units Levalbuterol HCl (Xopenex) 1.25 mg INH .CONTINUOUS [facility] Last Admin: 05/13/18 15:55 Dose: 1.25 mg Lisinopril (Prinivil) 5 mg PO DAILY [facility] Last Admin: 05/14/18 07:54 Dose: Not Given Lorazepam (Ativan) 0.5 mg IVPUSH ONETIME ONE Stop: 05/13/18 15:06 Last Admin: 05/13/18 15:16 Dose: 0.5 mg Lorazepam (Ativan) 1 mg IVPUSH Q6H PRN PRN Reason: Anxiety Last Admin: 05/14/18 08:06 Dose: 1 mg Lorazepam (Ativan) 1 mg IVPUSH Q2H PRN PRN Reason: Anxiety Last Admin: 05/14/18 13:24 Dose: 1 mg Methylprednisolone Sodium Succinate (Solu-Medrol) 62.5 mg IVPUSH 1200 [facility] Last Admin: 05/14/18 12:10 Dose: 62.5 mg Non-Formulary Medication (Albuterol) 2 puff INH Q4H PRN PRN Reason: Shortness of Breath Ptom Warfarin 4 (Mg Tab) 2 mg PO SUTUTHSA [facility] Last Admin: 05/12/18 12:57 Dose: 2 mg Ptom Warfarin 4 (Mg Tab) 4 mg PO MOWEFR [facility] Last Admin: 05/13/18 12:15 Dose: 4 mg Oseltamivir Phosphate (Tamiflu) 75 mg PO BID [facility] Stop: 05/14/18 20:01 Last Admin: 05/14/18 08:35 Dose: Not Given Promethazine HCl/Codeine (Phenergan With Codeine) 5 - 10 ml PO Q6H PRN PRN Reason: Cough Last Admin: 05/12/18 12:06 Dose: 5 ml Sodium Chloride (Saline Flush) 10 ml FLUSH ASDIRECTED PRN PRN Reason: Keep Vein Open [facility] Last Admin: 05/14/18 12:14 Dose: Not Given Warfarin Sodium (Coumadin) 4 mg PO MOWEFR [facility] Warfarin Sodium (Coumadin) 4 mg PO MoWeFr@1200 [facility] - Exam Quality Assessment: Reports: Supplemental Oxygen
== END 2018-05-14 21:20 | disposition expired | DRG 195 ==
LOC: CC.FCMC 10:30 → CC.MS 10:30 → UNDOADMOB 11:09 → CC.MS 12:18 → OBSVTOIN 05-12 17:50
PROVIDERS: ADMIT Nurse Practitioner Family; ATTEND Family Medicine
DX: J10.1 Influenza due to other identified influenza virus with other respiratory manifestations (principal); I50.9 Heart failure, unspecified; I11.0 Hypertensive heart disease with heart failure; E11.9 Type 2 diabetes mellitus without complications; I48.91 Unspecified atrial fibrillation; Z66 Do not resuscitate; Z51.5 Encounter for palliative care; R00.0 Tachycardia, unspecified; R79.82 Elevated C-reactive protein (CRP); F10.10 Alcohol abuse, uncomplicated; M06.9 Rheumatoid arthritis, unspecified; Z87.891 Personal history of nicotine dependence; Z86.718 Personal history of other venous thrombosis and embolism; Z79.01 Long term (current) use of anticoagulants; Z85.46 Personal history of malignant neoplasm of prostate; Z86.73 Personal history of transient ischemic attack (TIA), and cerebral infarction without residual deficits; Z85.6 Personal history of leukemia; Z88.1 Allergy status to other antibiotic agents; Z88.8 Allergy status to other drugs, medicaments and biological substances; Z91.048 Other nonmedicinal substance allergy status; Z79.84 Long term (current) use of oral hypoglycemic drugs; Z79.51 Long term (current) use of inhaled steroids; Z79.52 Long term (current) use of systemic steroids; Z79.899 Other long term (current) drug therapy
CPT/HCPCS: 36415; 36600; 71046; 80048; 82803; 82962; 85025; 85610; 86140; 87804; 94640; 94644; 94645; 96374; 96376; A9270-GY; G0378; J2060; J2930; J7612-GY; J7620-GY